=== PATIENT | female | born 1970 | race Caucasian/White ===

== ENCOUNTER 2017-08-31 14:38 | Emergency (ER) | payer SELFPAY ==
[~2017-08-31] VITALS: Ht 165.1 cm; Wt 50.0 kg
[~2017-08-31 14:38] MED LIST: MELO15TA2 PO; ROBA750T3 PO; TRAM50 PO; Z.0.NO CURRENT MEDS
[2017-08-31 16:46] VITALS: BP 189/88; PULSE 62; RESP 18; TEMP 99.9; O2SAT 99
[2017-08-31] MEDS ORDERED: ACETAMINOPHEN/HYDROcodone 325 MG/10 MG TAB PO ONE (17:00)
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
[2017-08-31] MEDS ORDERED: DICL75TA PO (17:41)
[2017-08-31] MEDS ORDERED: HYDR-3533 PO (17:41)
[2017-08-31 18:27] VITALS: BP 203/98
== END 2017-08-31 18:28 | disposition home or self-care (01) ==
LOC: NEPD 14:38
DX: T76.11XA Adult physical abuse, suspected, initial encounter (principal); S30.0XXA Contusion of lower back and pelvis, initial encounter; Y33.XXXA Other specified events, undetermined intent, initial encounter; Y92.009 Unspecified place in unspecified non-institutional (private) residence as the place of occurrence of the external cause; Z72.0 Tobacco use
CPT/HCPCS: 72220; 99284

== ENCOUNTER 2018-03-22 11:44 | Emergency (ER) | payer BC ==
[~2018-03-22] VITALS: Ht 157.5 cm; Wt 60.0 kg
[~2018-03-22 11:44] MED LIST changes: +DICL75TA PO; +HYDR-3533 PO; -MELO15TA2 PO; -ROBA750T3 PO; -TRAM50 PO; -Z.0.NO CURRENT MEDS
[2018-03-22] MEDS ORDERED: SODIUM CHLORIDE 0.9% FLUSH 10 ML FLUSH IVF PRN (12:00)
[2018-03-22 12:14] VITALS: BP 203/88; PULSE 69; RESP 15; TEMP 98.6; O2SAT 95
[2018-03-22 12:36] LABS: AUTOMATED NEUTROPHIL # 6.6 TH/MM3 (1.8-7.7); BASOPHIL % 0.5 % (0.0-2.0); EOSINOPHIL # 0.1 TH/MM3 (0-0.4); EOSINOPHIL % 0.8 % (0.0-4.0); HEMATOCRIT 42.4 % (35.0-46.0); HEMOGLOBIN 15.4 GM/DL (11.6-15.3); LYMPHOCYTE # 1.9 TH/MM3 (1.0-4.8); MEAN CELL VOLUME 96.4 FL (80.0-100.0); MEAN CORPUSCULAR HEMOGLOBIN 35.1 PG (27.0-34.0); MEAN PLATELET VOLUME 7.1 FL (7.0-11.0); MONOCYTE # 0.5 TH/MM3 (0-0.9); NEUT % 71.7 % (16.0-70.0); PLATELET COUNT 227 TH/MM3 (150-450); RED CELL DISTRIBUTION WIDTH 12.9 % (11.6-17.2); WHITE BLOOD COUNT 9.2 TH/MM3 (4.0-11.0)
[2018-03-22 12:42] LABS: MEAN CORPUSCULAR HGB CONC 36.4 % (32.0-36.0)
--- NOTE | 2018-03-22 12:56 | PD ---
HPI Chief Complaint: Hypertension Time Seen by Provider: 12:00 Travel History International Travel<30 days: No Contact w/Intl Traveler<30days: No Traveled to known affect area: No History of Present Illness HPI This is a 47-year-old female with a history of newly diagnosed hypertension, presents here after having an episode at work where she felt palpitations and dizzy and numbness to her lips. Patient denied any chest pain, chest pressure. She states that she just had the episode that came on and she was concerned it may be related to her blood pressure. The patient states she just received health insurance and when she met with her doctor, they wanted her to take a log of her blood pressure before starting on her blood pressure medicine. She reports that she was scheduled to see them on the third which is this . There are no other complaints at time of my examination. PFSH Past Medical History Anxiety: Yes Depression: Yes Diabetes: No Diminished Hearing: No Musculoskeletal: Yes (CHRONIC BACK PAIN) ?: Not : 4 Para: 4 Miscarriage: 0 Past Surgical History Abdominal Surgery: Yes (C-SECTIONS X 2) Appendectomy: Yes Section: Yes (X 2) Social History Alcohol Use: Yes (1-2 BEERS 2 DAYS A WEEK) Tobacco Use: Yes (1 PPD) Substance Use: No Allergies-Medications (Allergen,Severity, Reaction): Coded Allergies: No Known Allergies (Verified , 08/31/17) Reported Meds & Prescriptions Reported Meds & Active Scripts Active Lisinopril 20 Mg Tab 20 Mg PO DAILY Lortab (Hydrocodone-Acetaminophen) 5-325 Mg Tab 1 Tab PO Q6H PRN Diclofenac Sodium DR (Diclofenac Sodium) 75 Mg Tabdr 75 Mg PO BID PRN Review of Systems Except as stated in HPI: all other systems reviewed are Neg General / Constitutional: No: Fever, Chills HENT: Positive: Lightheadedness, Neck Pain (Chronic neck pain.), No: Headaches Cardiovascular: Positive: Palpitations, No: Chest Pain or Discomfort Respiratory: No: Cough, Shortness of Breath Gastrointestinal: Positive: Nausea (Prior to arrival), No: Vomiting, Abdominal Pain Genitourinary: No: Dysuria Musculoskeletal: No: Weakness, Pain Neurologic: Positive: Dizziness, Other (Numbness to her lips bilaterally), No: Weakness, Ataxia, Headache, Change in Mentation, Incontinence, Seizures Psychiatric: No: Substance Abuse Physical Exam Narrative GENERAL: Well-developed well-nourished female in no acute respiratory distress. SKIN: Focused skin assessment warm/dry. HEAD: Atraumatic. Normocephalic. EYES: Pupils equal and round. No scleral icterus. No injection or drainage. ENT: No nasal bleeding or discharge. Mucous membranes pink and moist. NECK: Trachea midline. Supple. CARDIOVASCULAR: Regular rate and rhythm. No murmur appreciated. RESPIRATORY: No accessory muscle use. Clear to auscultation. Breath sounds equal bilaterally. GASTROINTESTINAL: Abdomen soft, non-tender, nondistended. Hepatic and splenic margins not palpable. MUSCULOSKELETAL: No obvious deformities. No clubbing. No cyanosis. No edema. NEUROLOGICAL: Awake and alert. No obvious cranial nerve deficits. Motor grossly within normal limits. Normal speech. Normal heel to cunningham. Data Data Last Documented VS Vital Signs Date Time Temp Pulse Resp B/P (MAP) Pulse Ox O2 Delivery O2 Flow Rate FiO2 03/22/18 12:20 Room Air 03/22/18 12:14 98.6 69 15 203/88 (126) 95 Orders Orders Complete Blood Count With Diff (03/22/18 12:00) Basic Metabolic Panel (Bmp) (03/22/18 12:00) Ct Brain W/O Iv Contrast(Rout) (03/22/18 12:00) Ecg Monitoring (03/22/18 12:00) Iv Access Insert/Monitor (03/22/18 12:00) Oximetry (03/22/18 12:00) Sodium Chloride 0.9% Flush (Ns Flush) (03/22/18 12:00) Electrocardiogram (03/22/18 12:00) Ckmb (Isoenzyme) Profile (03/22/18 12:00) Troponin I (03/22/18 12:00) Labs Laboratory Tests Test 03/22/18 12:20 White Blood Count 9.2 TH/MM3 Red Blood Count 4.40 MIL/MM3 Hemoglobin 15.4 GM/DL Hematocrit 42.4 % Mean Corpuscular Volume 96.4 FL Mean Corpuscular Hemoglobin 35.1 PG Mean Corpuscular Hemoglobin Concent 36.4 % Red Cell Distribution Width 12.9 % Platelet Count 227 TH/MM3 Mean Platelet Volume 7.1 FL Neutrophils (%) (Auto) 71.7 % Lymphocytes (%) (Auto) 21.0 % Monocytes (%) (Auto) 6.0 % Eosinophils (%) (Auto) 0.8 % Basophils (%) (Auto) 0.5 % Neutrophils # (Auto) 6.6 TH/MM3 Lymphocytes # (Auto) 1.9 TH/MM3 Monocytes # (Auto) 0.5 TH/MM3 Eosinophils # (Auto) 0.1 TH/MM3 Basophils # (Auto) 0.0 TH/MM3 CBC Comment AUTO DIFF Differential Comment AUTO DIFF CONFIRMED Platelet Estimate NORMAL Platelet Morphology Comment NORMAL Red Cell Morphology Comment NORMAL Blood Urea Nitrogen 8 MG/DL Creatinine 0.87 MG/DL Random Glucose 129 MG/DL Calcium Level 8.7 MG/DL Sodium Level 138 MEQ/L Potassium Level 4.7 MEQ/L Chloride Level 105 MEQ/L Carbon Dioxide Level 27.0 MEQ/L Anion Gap 6 MEQ/L Estimat Glomerular Filtration Rate 69 ML/MIN Total Creatine Kinase 82 U/L Troponin I LESS THAN 0.02 NG/ML MDM Medical Decision Making Medical Screen Exam Complete: Yes Emergency Medical Condition: Yes Differential Diagnosis Hypertensive urgency versus TIA versus CVA Narrative Course 47-year-old female the history of hypertension currently not on medications, presents here after having an episode of dizziness while at work. When she checked her blood pressures was noted it was elevated. The patient's blood pressure was noted to be elevated here. Labs and CT scan were within normal limits. I called the patient's primary care office and discussed her presentation and recommended that we start her on blood pressure medicines today. They recommended we start her on lisinopril 20 mg daily. The patient will be started on 20 mg daily. She is instructed to check her blood pressure as previous and record and follow-up in the office on . Diagnosis Primary Impression: Near syncope Additional Impressions: Hypertension Tobacco use Additional Instructions: Stop smoking cigarettes. Take blood pressure medicine daily and continue to record her blood pressure for your appointment on . Return if feeling worse. Med/Other Pt SpecificInfo: Prescription(s) given Scripts Lisinopril (Lisinopril) 20 Mg Tab 20 MG PO DAILY, #30 TAB 0 Refills Prov: Osvaldo Benitez MD 03/22/18 Disposition: 01 DISCHARGE HOME Condition: Stable Osvaldo Benitez MD Mar 22, 2018 12:56
--- NOTE | 2018-03-22 12:58 | RADRPT ---
EXAM DATE/TIME: 03/22/2018 12:50 [facility] COMPARISON: No previous studies available for comparison. INDICATIONS : Hypertension, dizziness. RADIATION DOSE: 35.02 CTDIvol (mGy) MEDICAL HISTORY : None SURGICAL HISTORY : None. ENCOUNTER: Initial ACUITY: 1 day PAIN SCALE: 4/10 LOCATION: Bilateral cranial TECHNIQUE: Multiple contiguous axial images were obtained of the head. Using automated exposure control and adj ustment of the mA and/or kV according to patient size, radiation dose was kept as low as reasonably a chievable to obtain optimal diagnostic quality images. DICOM format image data is available electro nically for review and comparison. FINDINGS: CEREBRUM: The ventricles are normal for age. No evidence of midline shift, mass lesion, hemorrhage or acute in farction. No extra-axial fluid collections are seen. POSTERIOR FOSSA: The cerebellum and brainstem are intact. The 4th ventricle is midline. The cerebellopontine angle i s unremarkable. EXTRACRANIAL: The visualized portion of the orbits is intact. SKULL: The calvaria is intact. No evidence of skull fracture. CONCLUSION: Negative noncontrast CT Pedro Robles MD on March 22, 2018 at 12:56 Board Certified Radiologist. This report was verified electronically.
[2018-03-22 13:02] LABS: BLOOD UREA NITROGEN 8 MG/DL (7-18); CALCIUM 8.7 MG/DL (8.5-10.1); CHLORIDE 105 MEQ/L (98-107); CREATININE 0.87 MG/DL (0.50-1.00); GLOMERULAR FILTRATION RATE 69 ML/MIN (>89); GLUCOSE,RANDOM 129 MG/DL (74-106); SODIUM (NA) 138 MEQ/L (136-145); TROPONIN I LESS THAN 0.02 NG/ML (0.02-0.05)
[2018-03-22] MEDS ORDERED: LISI-515 PO (14:59)
[2018-03-22 15:00] VITALS: BP 191/88; PULSE 76; RESP 18; O2SAT 99
[2018-03-22] MEDS ORDERED: LISINOPRIL 20 MG TAB PO ONE (15:15)
[2018-03-22 15:51] VITALS: BP 190/86
--- NOTE | 2018-03-22 17:42 | EKG ---
Date Performed: 03/22/2018 Time Performed: 12:12:36 PTAGE: 47 years EKG: Sinus rhythm NORMAL ECG NO PREVIOUS TRACING DOCTOR: Tej Pompa Interpretating Date/Time 03/22/2018 17:41:34
== END 2018-03-22 16:22 | disposition home or self-care (01) ==
LOC: NEPC 11:44
DX: R55 Syncope and collapse (principal); I10 Essential (primary) hypertension; F17.210 Nicotine dependence, cigarettes, uncomplicated; Z79.899 Other long term (current) drug therapy
CPT/HCPCS: 70450; 80048; 82550; 84484; 85025; 93005; 99285